=== PATIENT | female | born 1990 ===

== ENCOUNTER 2016-12-26 19:29 | Emergency (ER) | payer OTHER ==
[2016-12-26 19:50] VITALS: BP 138/82; PULSE 65; RESP 18; TEMP 99.5; O2SAT 99
--- NOTE | 2016-12-26 20:07 | ED PDOC ---
HPI: General Adult Time Seen by Provider: 12/26/16 19:51 Chief Complaint (Nursing): Upper Extremity Problem/Injury Chief Complaint (Provider): Left breast lump History Per: Patient History/Exam Limitations: no limitations Onset/Duration Of Symptoms: Days (x3) Current Symptoms Are (Timing): Still Present Additional Complaint(s): Justine is a 26 y/o female who presents to the ED complaining of lump to the left breast, onset 3 days ago. Also has been noticing drainage from the breast. Patient denies breast-feeding. Her only daughter is 12 years old. PMD: None reported Past Medical History Reviewed: Historical Data, Nursing Documentation, Vital Signs Vital Signs: Last Vital Signs Temp 99.5 F 12/26/16 19:45 Pulse 65 12/26/16 19:45 Resp 18 12/26/16 19:45 BP 138/82 12/26/16 19:45 Pulse Ox 99 12/26/16 20:07 - Medical History PMH: No Chronic Diseases - Surgical History Surgical History: No Surg Hx - Family History Family History: States: No Known Family Hx - Living Arrangements Living Arrangements: With Family - Social History Current smoker - smoking cessation education provided: No Alcohol: None Drugs: Denies - Allergies Allergies/Adverse Reactions: Allergies Allergy/AdvReac Type Severity Reaction Status Date / Time No Known Allergies Allergy Verified 12/26/16 19:49 Review of Systems ROS Statement: Except As Marked, All Systems Reviewed And Found Negative Skin: Positive for: Other (Lump at left breast with associated drainage) Physical Exam - Reviewed Nursing Documentation Reviewed: Yes Vital Signs Reviewed: Yes - Physical Exam Appears: Positive for: Well, Non-toxic, No Acute Distress Head Exam: Positive for: ATRAUMATIC, NORMAL INSPECTION, NORMOCEPHALIC Skin: Positive for: Normal Color (Palpable tender lump in the left axilla, no erythema of the skin ), Warm, Dry Eye Exam: Positive for: Normal appearance ENT: Positive for: Normal ENT Inspection Neck: Positive for: Normal Cardiovascular/Chest: Negative for: Regular Rate, Rhythm Respiratory: Negative for: Accessory Muscle Use, Respiratory Distress Extremity: Positive for: Normal ROM Neurologic/Psych: Positive for: Alert, Oriented - ECG O2 Sat by Pulse Oximetry: 99 (RA) Pulse Ox Interpretation: Normal Medical Decision Making Medical Decision Making: Time: 20:05 Plan: --Patient is medically stable, and requires no further treatment in the ED at this time. --Advised patient to make an appointment with the clinic to follow up for a mammogram --Counseling was provided and all questions were answered. --There is agreement to discharge plan. Return if symptoms persist or worsen. Scribe Attestation: Documented by Em Hilario, acting as a scribe for Adri Krishnan PA-C Provider Scribe Attestation: All medical record entries made by the Scribe were at my direction and personally dictated by me. I have reviewed the chart and agree that the record accurately reflects my personal performance of the history, physical exam, medical decision making, and the department course for this patient. I have also personally directed, reviewed, and agree with the discharge instructions and disposition. Disposition - Clinical Impression Clinical Impression: Lump of axilla - Disposition Referrals: [facility] [Outside] Disposition: Routine/Home Disposition Time: 20:26 Condition: GOOD Additional Instructions: Follow-up in the clinic.
== END 2016-12-26 20:43 | disposition home or self-care (01) ==
LOC: H.ER 19:29
DX: R22.32 Localized swelling, mass and lump, left upper limb (principal)

== ENCOUNTER 2017-05-15 22:14 | Emergency (ER) | payer SELFPAY ==
[2017-05-15 22:19] VITALS: BP 161/79; PULSE 83; RESP 16; TEMP 98.8; O2SAT 99
[2017-05-15 23:22] LABS: BASO # 0.2 K/uL (0.0-0.2); BASO % 1.6 % (0.0-2.0); EOS # 0.3 K/uL (0.0-0.7); EOS % 2.5 % (0.0-4.0); HEMOGLOBIN 12.4 g/dL (12.0-16.0); LYMPH # 2.9 K/uL (1.0-4.3); LYMPH % 23.5 % (20.0-40.0); MEAN CELL VOLUME 88.8 fl (81.0-99.0); MEAN CORPUSCULAR HEMOGLOBIN 29.1 pg (27.0-31.0); MEAN CORPUSCULAR HGB CONC 32.7 g/dL (33.0-37.0); MEAN PLATELET VOLUME 11.1 fl (7.2-11.7); MONO # 0.8 K/uL (0.0-0.8); MONO % 6.7 % (0.0-10.0); NEUT # 8.2 K/uL (1.8-7.0); NEUT % 65.7 % (50.0-75.0); NRBC % 0.1 % (0.0-0.0); RBC 4.27 Mil/uL (3.80-5.20); RED CELL DISTRIBUTION WIDTH 13.7 % (11.5-14.5); WHITE BLOOD COUNT 12.4 K/uL (4.8-10.8)
[2017-05-15 23:29] LABS: BLOOD UREA NITROGEN 8 mg/dl (7-17); CALCIUM 9.7 mg/dL (8.4-10.2); GFR AFRICAN-AMERICAN > 60; GFR NON-AFRICAN AMERICAN > 60
--- NOTE | 2017-05-15 23:35 | ED PDOC ---
HPI: Female Pain Time Seen by Provider: 05/15/17 22:21 Chief Complaint (Nursing): Female Genitourinary Chief Complaint (Provider): Female Genitourinary History Per: Patient History/Exam Limitations: no limitations Onset/Duration Of Symptoms: Hrs (since earlier today) Current Symptoms Are (Timing): Still Present Associated Symptoms: denies: Fever, Nausea, Vomiting, Urinary Symptoms Additional Complaint(s): 27 year old female presents to ED with complaints of suprapubic pain and vaginal bleeding since earlier today and is . (-) fever, nausea, vomiting, urinary symptoms, back pain, or other complaints. Patient notes that she had a positive home test yesterday, but that approximately 2 weeks ago her test was negative. Reports that she has not menstruated in 3 months. 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 Abnormal Vaginal Bleeding: Yes : 3 Para: 1 Past Medical History Reviewed: Historical Data, Nursing Documentation, Vital Signs Vital Signs: Last Vital Signs Temp 98.8 F 05/15/17 22:16 Pulse 83 05/15/17 22:16 Resp 16 05/15/17 22:16 BP 161/79 H 05/15/17 22:16 Pulse Ox 99 05/15/17 22:16 - Medical History PMH: No Chronic Diseases - Family History Family History: States: No Known Family Hx - Social History Alcohol: None Drugs: Denies - Allergies Allergies/Adverse Reactions: Allergies Allergy/AdvReac Type Severity Reaction Status Date / Time No Known Allergies Allergy Verified 05/15/17 22:15 Review of Systems ROS Statement: Except As Marked, All Systems Reviewed And Found Negative Constitutional: Negative for: Fever Gastrointestinal: Positive for: Abdominal Pain (suprapubic pain). Negative for : Nausea, Vomiting Genitourinary Female: Positive for: Vaginal Bleeding. Negative for: Dysuria, Frequency, Incontinence, Hematuria Musculoskeletal: Negative for: Back Pain Physical Exam - Reviewed Nursing Documentation Reviewed: Yes Vital Signs Reviewed: Yes - Physical Exam Appears: Positive for: Well, Uncomfortable (in mild distress) Skin: Positive for: Normal Color, Warm, Dry Neck: Positive for: Normal Cardiovascular/Chest: Positive for: Regular Rate, Rhythm. Negative for: Murmur Respiratory: Positive for: Normal Breath Sounds. Negative for: Rhonchi, Wheezing, Respiratory Distress Gastrointestinal/Abdominal: Positive for: Soft, Tenderness (moderate lower abdominal tenderness). Negative for: Distended, Guarding, Rebound Pelvic Exam: Positive for: External Exam Normal, Active Bleeding (mild bleeding from a closed cervical os), Other (female tech was present during the entire exam). Negative for: Discharge, Lesions Back: Positive for: Normal Inspection. Negative for: L CVA Tenderness, R CVA Tenderness Extremity: Positive for: Normal ROM. Negative for: Tenderness, Swelling Neurologic/Psych: Positive for: Alert, nursing coordinator II-XII, Oriented. Negative for: Motor/Sensory Deficits - Laboratory Results Result Diagrams: 05/15/17 23:06 05/15/17 23:06 - ECG O2 Sat by Pulse Oximetry: 99 (RA) Pulse Ox Interpretation: Normal Medical Decision Making Medical Decision Makin Initial impression: abdominal pain and vaginal bleeding in setting of r/o ectopic, consider threatened AB Initial plan: * T&S * Labs * BETA HCG QUANT * UCx * UA * US TRANSVAGINAL * Morphine 2 mg IV * Zofran 4 mg IV Uhcg + UA (-) Labs reviewed : type and screen O+, beta quant 423 TV US : No IUP is seen. No adnexal masses are identified. Impression: No demonstrable intrauterine or extrauterine . With a positive test, the differential diagnosis includes a recent spontaneous and very early intrauterine or extra uterine . Careful follow-up including correlation with beta HCG levels is recommended. The possibility of ectopic cannot be excluded at this time On reevaluation, patient is laying in bed comfortably in no acute distress. Patient reports improvement of pain, reports no increase in vaginal bleeding. Diagnostic results discussed with the patient in great detail. Based on history , exam and diagnostic results plan will be for outpatient follow-up, patient will return to the emergency room after 2 days for repeat beta Quant. Patient notified of likely diagnosis miscarriage. Instructed to return to the emergency room at any time for any new or worsening symptoms. Patient states she fully agrees with and understands discharge instructions. States that she agrees with the plan and disposition. Verbalized and repeated discharge instructions and plan. I have given the patient opportunity to ask any additional questions. Scribe Attestation: Documented by Simran Fry acting as a scribe for Jany Molina PA-C. Scribe Attestation: All medical record entries made by the Scribe were at my direction and personally dictated by me. I have reviewed the chart and agree that the record accurately reflects my personal performance of the history, physical exam, medical decision making, and the department course for this patient. I have also personally directed, reviewed, and agree with the discharge instructions and disposition. Disposition - Clinical Impression Clinical Impression: Vaginal bleeding in - Patient ED Disposition Is Patient to be Admitted: No Counseled Patient/Family Regarding: Studies Performed, Diagnosis, Need For Followup - Disposition Disposition: Routine/Home Disposition Time: 02:00 Condition: STABLE Additional Instructions: Thank you for letting us take care of you today. You were treated for vaginal bleeding in , likely miscarriage. The emergency medical care you received today was directed at your acute symptoms. If you were prescribed any medication, please fill it and take as directed. It may take several days for your symptoms to resolve. Return to the Emergency Department if your symptoms worsen, do not improve, or if you have any other problems. Please return to the emergency room and 2 days for re-evaluation and repeat beta Quant. Bring any paperwork you were given at discharge with you along with any medications you are taking to your follow up visit. Our treatment cannot replace ongoing medical care by a primary care provider (PCP) outside of the emergency department. Thank you for allowing the [facility] team to be part of your care today. 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
[2017-05-15] MEDS ORDERED: Morphine 4 MG/ML VIAL IVP STA (23:58)
[2017-05-16] MEDS ORDERED: Morphine 4 MG/ML VIAL ONE (00:02)
--- NOTE | 2017-05-16 01:41 | US ---
EXAM: US Duplex Arterial/Venous of the Pelvis, Complete CLINICAL HISTORY: 27 years old, female; Pain; Pelvic pain; Additional info: Vag bleed, abd pain TECHNIQUE: Real-time duplex ultrasound scan of the arterial and venous flow of the pelvis with color Doppler flow and spectral waveform analysis. Endovaginal images are submitted. COMPARISON: No relevant prior studies available. FINDINGS: Uterus/cervix: The endometrial stripe measures 15 mm.Thickened endometrial stripe. The sonographic differential consideration in a premenopausal non woman includes premenstrual thickening most likely versus less likely endometrial hyperplasia and endometrial neoplasia. Retroverted uterus. The uterus measures 8.8 x 7.2 x 5.1 cm. No myometrial mass. Right ovary: The right ovary measures 4.0 x 3.1 x 1.8 cm. Duplex assessment demonstrates presence of color Doppler signal and spectral Doppler waveform in right ovary. No torsion. Left ovary: The left ovary measures 3.2 x 1.7 x 2.1 cm. No torsion.Duplex assessment demonstrates presence of color Doppler signal and spectral Doppler waveform in left ovary. Free fluid: No free pelvic fluid. IMPRESSION: 1. The endometrial stripe measures 15 mm.Thickened endometrial stripe. The sonographic differential consideration in a premenopausal non woman includes premenstrual thickening most likely versus less likely endometrial hyperplasia and endometrial neoplasia.
== END 2017-05-16 02:40 | disposition home or self-care (01) ==
LOC: H.ER 22:14
DX: O46.90 Antepartum hemorrhage, unspecified, unspecified trimester (principal)
CPT/HCPCS: 76830; 80048; 84702; 85025; 86850; 86900; 96374; 96375; 99283; J2270; J2405

== ENCOUNTER 2017-05-18 06:59 | Emergency (ER) | payer SELFPAY ==
[2017-05-18 07:29] VITALS: BP 117/71; PULSE 61; RESP 18; TEMP 98.9; O2SAT 98
[2017-05-18] MEDS ORDERED: Sodium Chloride 0.9% 1,000 ML IV STA (07:53)
--- NOTE | 2017-05-18 08:34 | ED PDOC ---
HPI: Abdomen Time Seen by Provider: 05/18/17 07:00 Chief Complaint (Nursing): Abdominal Pain Chief Complaint (Provider): Abdominal pain History Per: Patient History/Exam Limitations: no limitations Onset/Duration Of Symptoms: Days (x4) Current Symptoms Are (Timing): Still Present Location Of Pain/Discomfort: Suprapubic Quality Of Discomfort: "Pain" Associated Symptoms: Vomiting, Other (vaginal bleeding) Additional Complaint(s): Justine Chavez is a 27 year old female, with no past medical history, who presents to the emergency department complaining of abdominal pain associated with vaginal bleeding and vomiting onset for x4 days. Patient states she was seen in the ED on 05/15/17 for possible bleeding in pain and was told to return today for repeat Beta quant. Patient reports bleeding stopped but is still in mild pain. Last vomiting episode was this morning, and she has been tolerating water. She denies any fever or chills. No further medical complaints. PMD: Dr. Mills : 3 Para: 1 Past Medical History Reviewed: Historical Data, Nursing Documentation, Vital Signs Vital Signs: Last Vital Signs Temp 98.9 F 05/18/17 07:25 Pulse 61 05/18/17 07:25 Resp 18 05/18/17 07:25 BP 117/71 05/18/17 07:25 Pulse Ox 98 05/18/17 10:29 - Medical History PMH: No Chronic Diseases - Surgical History Surgical History: No Surg Hx - Family History Family History: States: Unknown Family Hx - Social History Current smoker - smoking cessation education provided: No Alcohol: None Drugs: Denies - Allergies Allergies/Adverse Reactions: Allergies Allergy/AdvReac Type Severity Reaction Status Date / Time No Known Allergies Allergy Verified 05/15/17 22:15 Review of Systems ROS Statement: Except As Marked, All Systems Reviewed And Found Negative Constitutional: Negative for: Fever, Chills Gastrointestinal: Positive for: Vomiting, Abdominal Pain Genitourinary Female: Positive for: Vaginal Bleeding Physical Exam - Reviewed Nursing Documentation Reviewed: Yes Vital Signs Reviewed: Yes - Physical Exam Appears: Positive for: Non-toxic Head Exam: Positive for: ATRAUMATIC, NORMAL INSPECTION, NORMOCEPHALIC Skin: Positive for: Normal Color, Warm, Dry Eye Exam: Positive for: Normal appearance Neck: Positive for: Normal, Painless ROM, Supple Cardiovascular/Chest: Positive for: Regular Rate, Rhythm. Negative for: Murmur Respiratory: Positive for: Normal Breath Sounds. Negative for: Respiratory Distress Gastrointestinal/Abdominal: Positive for: Tenderness (suprapubic) Extremity: Positive for: Normal ROM. Negative for: Deformity, Swelling Neurologic/Psych: Positive for: Alert, Oriented - Laboratory Results Result Diagrams: 05/18/17 08:28 05/18/17 08:28 - ECG O2 Sat by Pulse Oximetry: 98 (RA) Pulse Ox Interpretation: Normal Medical Decision Making Medical Decision Making: Initial Impression: abdominal pain in Initial Plan: --Beta-HCG, Quantitative --Comp metabolic Panel --CBC w/ differential --Sodium Chloride 1,000 ml IV 999 mls/hr --reevaluation pt is RH positive 10:25 informed pt that.. --HCG is 186, down from 423 when she was here on May 15. Patient is likely miscarrying will advise to follow up with OBGYN in 2 days. pt states no bleeding Scribe Attestation: Documented by Walt Lujan, acting as a scribe for Maynor Laws MD Provider Scribe Attestation: All medical record entries made by the Scribe were at my direction and personally dictated by me. I have reviewed the chart and agree that the record accurately reflects my personal performance of the history, physical exam, medical decision making, and the department course for this patient. I have also personally directed, reviewed, and agree with the discharge instructions and disposition. 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 Instructions: Spontaneous Miscarriage (ED) Forms: [facility] (Spanish) Print Language: TAJIK
[2017-05-18 08:38] LABS: BASO # 0.1 K/uL (0.0-0.2); EOS # 0.3 K/uL (0.0-0.7); EOS % 4.1 % (0.0-4.0); HEMOGLOBIN 13.1 g/dL (12.0-16.0); LYMPH # 2.5 K/uL (1.0-4.3); LYMPH % 30.3 % (20.0-40.0); MEAN CELL VOLUME 87.9 fl (81.0-99.0); MEAN CORPUSCULAR HEMOGLOBIN 30.5 pg (27.0-31.0); MEAN CORPUSCULAR HGB CONC 34.6 g/dL (33.0-37.0); MEAN PLATELET VOLUME 10.8 fl (7.2-11.7); MONO # 0.6 K/uL (0.0-0.8); MONO % 7.4 % (0.0-10.0); NEUT # 4.8 K/uL (1.8-7.0); NEUT % 57.2 % (50.0-75.0); NRBC % 0.2 % (0.0-0.0); RBC 4.29 Mil/uL (3.80-5.20); RED CELL DISTRIBUTION WIDTH 13.8 % (11.5-14.5); WHITE BLOOD COUNT 8.4 K/uL (4.8-10.8)
[2017-05-18 08:55] LABS: ALBUMIN 3.6 g/dL (3.5-5.0); ALT/SGPT 137 U/L (9-52); AST/SGOT 83 U/L (14-36); BLOOD UREA NITROGEN 5 mg/dl (7-17); CALCIUM 9.5 mg/dL (8.4-10.2); GFR AFRICAN-AMERICAN > 60; GFR NON-AFRICAN AMERICAN > 60
== END 2017-05-18 10:38 | disposition home or self-care (01) ==
LOC: H.ER 06:59
DX: O03.9 Complete or unspecified spontaneous abortion without complication (principal)
CPT/HCPCS: 80053; 84702; 85025; 96360; 99282; J7040